=== PATIENT | male | born 1990 | race Caucasian/White ===

== ENCOUNTER 2022-11-19 07:04 | Inpatient (IN) | payer BC, SELFPAY ==
[2022-11-19] MEDS ORDERED: Dexamethasone 10 MG/ML VIAL ONE (07:53)
[2022-11-19] MEDS ORDERED: Ketorolac Tromethamine 30 MG/ML VIAL ONE (07:54)
[2022-11-19] MEDS ORDERED: Ondansetron PF 4 MG/2 ML Vial ONE (07:54)
[2022-11-19 08:28] LABS: #Basophils 0.1 10x3/uL (0.0-0.2); #Monocytes 0.9 10x3/uL (0.0-1.1); #Neutrophils 8.9 10x3/uL (1.5-8.4); %Basophils 1.3 % (0.0-2.0); %Eosinophils 0.4 % (0.0-6.0); %Lymphocytes 6.9 % (18.0-47.0); %Monocytes 8.5 % (0.0-10.0); %Neutrophils 81.3 % (40.0-75.0); Hemoglobin 14.5 g/dL (13.5-17.5); Mean Corpuscular HGB CONC 34.5 g/dL (32.0-36.0); Mean Corpuscular Hemoglobin 27.2 pg (27.0-33.0); Mean Corpuscular Volume 78.8 fl (81.2-95.1); Mean Platelet Volume 12.1 fl (7.4-10.4); Platelet Count 143 10x3/uL (150-450); RBC Distribution Width 13.3 % (11.5-14.5); Red Blood Cell (RBC) Count 5.33 10x6/uL (4.32-5.72); White Blood Cell (WBC) Count 10.9 10x3/uL (3.5-10.5)
[2022-11-19 08:41] LABS: ALT (SGPT) 18 U/L (8-55); AST (SGOT) 17 U/L (5-34); Albumin 4.2 g/dL (3.5-5.0); Alkaline Phosphatase 81 U/L (40-110); Anion Gap 23 mmol/L (10-20); BUN (Urea Nitrogen) 42 mg/dL (8.9-20.6); Bilirubin, Total 0.6 mg/dL (0.2-1.2); Calc. Creatinine Clearance 0 mL/min (70-130); Calcium 9.8 mg/dL (7.8-10.44); Carbon Dioxide 16 mmol/L (22-29); Chloride 97 mmol/L (98-107); Estimated GFR 30; Globulin 3.7 g/dL (2.4-3.5); Glucose 114 mg/dL (70-105); Lipase 21 U/L (8-78); Potassium 3.4 mmol/L (3.5-5.1); Protein, Total 7.9 g/dL (6.0-8.3); Sodium 133 mmol/L (136-145)
[2022-11-19 08:44] LABS: SARS-CoV-2 NAA Rapid Test Not Detected (NotDetected)
[2022-11-19 10:01] LABS: Bilirubin Neg (Negative); Blood, Urine 50 (Negative); Clarity Slightly Cloudy (Clear); Glucose, Urine (Dipstick) Normal (Negative); Ketone, Urine Negative (Negative); Leukocyte 25 (Negative); Nitrite Negative (Negative); Protein, Urine (Dipstick) 100 mg/dl (Neg-Trace); Urobilinogen Normal mg/dL (Less than 2)
[2022-11-19] MEDS ORDERED: Lidocaine Viscous Sol 2% 15 ml UD Cup ONE (10:14)
[2022-11-19] MEDS ORDERED: Mag-Al Plus 1200 MG/1200 MG/120 MG/30 ML UDCUP ONE (10:14)
[2022-11-19 11:20] LABS: RBC/HPF 0-3 HPF (0-3); Squamous Epithelial 0-3 HPF (0-3)
[2022-11-19 11:23] LABS: Bacteria/HPF Rare-Few HPF (None Seen)
[2022-11-19] MEDS ORDERED: Ondansetron PF 4 MG/2 ML Vial IVP PRN (13:09)
[2022-11-19] MEDS ORDERED: Ondansetron ODT 4 MG TAB PO PRN (13:09)
[2022-11-19 13:53] LABS: Amphetamine Detected (NotDetected); Barbiturates Screen Not Detected (NotDetected); Benzodiazepine Screen Detected (NotDetected); Cocaine Metabolite Screen Not Detected (NotDetected); Methadone Not Detected (NotDetected); Methamphetamine Not Detected (NotDetected); Opiate Screen Not Detected (NotDetected); Oxycodone Screen Not Detected (NotDetected); Phencyclidine (PCP) Not Detected (NotDetected); THC/Cannabinoid Screen Detected (NotDetected); Tricyclic Screen Not Detected (NotDetected)
[2022-11-19 14:07] LABS: Creatinine, Urine 80.26 mg/dL (63-166); Microalbumin/Creat Ratio 49.8 mg/g (Less than 30)
[2022-11-19] MEDS ORDERED: Potassium Chloride 20 MEQ TAB PO SCH (16:00)
[2022-11-19] MEDS: Lactated Ringer's 1,000 ML IV SCH (16:35)
[2022-11-19 18:01] VITALS: BMI 21.6
[2022-11-19] MEDS ORDERED: Famotidine/PF 20 mg/2ml Vial SLOW IVP SCH (21:00)
[2022-11-20] MEDS: Lactated Ringer's 1,000 ML IV SCH ×3 (00:33→15:14)
[2022-11-20 06:24] LABS: #Monocytes 0.9 10x3/uL (0.0-1.1); #Neutrophils 7.2 10x3/uL (1.5-8.4); %Basophils 0.3 % (0.0-2.0); %Monocytes 10.3 % (0.0-10.0); %Neutrophils 81.3 % (40.0-75.0); Hemoglobin 11.6 g/dL (13.5-17.5); Mean Corpuscular HGB CONC 33.6 g/dL (32.0-36.0); Mean Corpuscular Hemoglobin 27.8 pg (27.0-33.0); Mean Corpuscular Volume 82.7 fl (81.2-95.1); Mean Platelet Volume 12.3 fl (7.4-10.4); Platelet Count 132 10x3/uL (150-450); RBC Distribution Width 13.5 % (11.5-14.5); Red Blood Cell (RBC) Count 4.17 10x6/uL (4.32-5.72); White Blood Cell (WBC) Count 8.8 10x3/uL (3.5-10.5)
[2022-11-20 06:50] LABS: Anion Gap 16 mmol/L (10-20); BUN (Urea Nitrogen) 25 mg/dL (8.9-20.6); Calc. Creatinine Clearance 123 mL/min (70-130); Calcium 8.8 mg/dL (7.8-10.44); Carbon Dioxide 23 mmol/L (22-29); Chloride 103 mmol/L (98-107); Estimated GFR 110; Glucose 123 mg/dL (70-105); Magnesium 1.8 mg/dL (1.6-2.6); Phosphorus 2.8 mg/dL (2.3-4.7); Potassium 4.1 mmol/L (3.5-5.1); Sodium 138 mmol/L (136-145)
[2022-11-20] MEDS: Acetaminophen 325 MG TAB PO PRN ×3 (08:19→20:07)
[2022-11-20] MEDS: Famotidine/PF 20 mg/2ml Vial SLOW IVP SCH ×2 (08:21→20:09)
[2022-11-20] MEDS: ALPRAZolam 0.25 MG TAB PO PRN (15:12)
[2022-11-20 18:21] LABS: Hemoglobin 11.5 g/dL (13.5-17.5); Platelet Count 122 10x3/uL (150-450)
[2022-11-20] MEDS: DULoxetine 30 MG CAP PO SCH (20:07)
[2022-11-20] MEDS: Amoxicillin/Potassium Clav 875 MG TAB PO SCH (20:07)
[2022-11-20] MEDS: Chlorhexidine Gluconate 15 ML UDCUP SSP SCH (20:09)
[2022-11-20 21:04] LABS: Campy jejuni + coli by PCR Negative (Negative); STEC Shiga Toxin 1+2 Negative (Negative); Salmonella spp. by PCR Negative (Negative); Shigella spp + EIEC by PCR Negative (Negative)
[2022-11-20] MEDS: Morphine 2 MG/ML VIAL SLOW IVP PRN (21:20)
[2022-11-21] MEDS: Chloraseptic Spray 180 ml Bottle PO PRN ×7 (00:16→18:15)
[2022-11-21] MEDS: Lactated Ringer's 1,000 ML IV SCH (02:29)
[2022-11-21] MEDS: Morphine 2 MG/ML VIAL SLOW IVP PRN ×2 (02:34→06:07)
[2022-11-21 05:09] LABS: Anion Gap 10 mmol/L (10-20); BUN (Urea Nitrogen) 13 mg/dL (8.9-20.6); Calc. Creatinine Clearance 141 mL/min (70-130); Calcium 8.4 mg/dL (7.8-10.44); Carbon Dioxide 28 mmol/L (22-29); Chloride 99 mmol/L (98-107); Estimated GFR 121; Glucose 109 mg/dL (70-105); Potassium 3.4 mmol/L (3.5-5.1); Sodium 134 mmol/L (136-145)
[2022-11-21 05:10] LABS: Hemoglobin 11.5 g/dL (13.5-17.5); Platelet Count 124 10x3/uL (150-450)
[2022-11-21 05:11] LABS: Hemoglobin 11.6 g/dL (13.5-17.5); Mean Corpuscular HGB CONC 33.3 g/dL (32.0-36.0); Mean Corpuscular Hemoglobin 27.8 pg (27.0-33.0); Mean Corpuscular Volume 83.5 fl (81.2-95.1); Mean Platelet Volume 11.9 fl (7.4-10.4); Platelet Count 122 10x3/uL (150-450); RBC Distribution Width 13.9 % (11.5-14.5); Red Blood Cell (RBC) Count 4.17 10x6/uL (4.32-5.72); White Blood Cell (WBC) Count 6.8 10x3/uL (3.5-10.5)
[2022-11-21 05:54] LABS: #Monocytes 0.9 10x3/uL (0.0-1.1); #Neutrophils 4.3 10x3/uL (1.5-8.4); %Basophils 0.5 % (0.0-2.0); %Eosinophils 0.5 % (0.0-6.0); %Neutrophils 64.9 % (40.0-75.0)
[2022-11-21] MEDS ORDERED: Acetaminophen 325 MG TAB PO PRN (07:11)
[2022-11-21] MEDS ORDERED: Electrolyte Replacement Protocol 1 EACH FS SCH (07:15)
[2022-11-21 07:36] LABS: HIV (1/2) Antibody/Antigen Non-Reactive (NonReactive); HIV 1/2 INDEX 0.16 S/CO (<1.00)
[2022-11-21] MEDS ORDERED: Magnesium 2 GM/50 ML(in water) 2 GM in Premix Bag 1 BAG IVPB SCH (08:00)
[2022-11-21] MEDS ORDERED: Potassium Chloride 20 MEQ TAB PO SCH (08:00)
[2022-11-21] MEDS: Amoxicillin/Potassium Clav 875 MG TAB PO SCH (08:37)
[2022-11-21] MEDS: Famotidine/PF 20 mg/2ml Vial SLOW IVP SCH ×2 (08:37→20:47)
[2022-11-21] MEDS ORDERED: D5 1/2 NS w/20 mEq KCL 1,000 ML IV SCH (08:45)
[2022-11-21] MEDS: Chlorhexidine Gluconate 15 ML UDCUP SSP SCH ×2 (08:46→20:47)
[2022-11-21] MEDS ORDERED: Ampicillin/Sulbactam 3 GM in Sodium Chloride 0.9% 100 ML IVPB SCH (09:00)
[2022-11-21] MEDS ORDERED: Iopamidol 300 61% 100 ML VIAL FS ONE (09:52)
[2022-11-21] MEDS ORDERED: Piperacillin/Tazobactam 3.375 GM in Sodium Chloride 0.9% 100 ML IVPB SCH ×2 (10:45→11:00)
[2022-11-21] MEDS: Clindamycin/D5W 600 MG in Premix Bag 1 BAG IVPB SCH ×2 (14:52→22:03)
[2022-11-21 15:23] LABS: Potassium 4.1 mmol/L (3.5-5.1)
[2022-11-21] MEDS: Piperacillin/Tazobactam 3.375 GM in Sodium Chloride 0.9% 100 ML IVPB SCH (15:36)
[2022-11-21] MEDS: DULoxetine 30 MG CAP PO SCH (20:47)
[2022-11-21] MEDS: Morphine 4 MG/ML VIAL SLOW IVP PRN (20:47)
[2022-11-22] MEDS: Piperacillin/Tazobactam 3.375 GM in Sodium Chloride 0.9% 100 ML IVPB SCH ×3 (00:07→17:01)
[2022-11-22 04:25] LABS: Hemoglobin 12.2 g/dL (13.5-17.5); Mean Corpuscular HGB CONC 32.3 g/dL (32.0-36.0); Mean Corpuscular Hemoglobin 27.2 pg (27.0-33.0); Mean Corpuscular Volume 84.4 fl (81.2-95.1); Mean Platelet Volume 11.3 fl (7.4-10.4); Platelet Count 152 10x3/uL (150-450); RBC Distribution Width 13.9 % (11.5-14.5); Red Blood Cell (RBC) Count 4.48 10x6/uL (4.32-5.72); White Blood Cell (WBC) Count 7.7 10x3/uL (3.5-10.5)
[2022-11-22 04:37] LABS: Anion Gap 14 mmol/L (10-20); BUN (Urea Nitrogen) 10 mg/dL (8.9-20.6); Calc. Creatinine Clearance 134 mL/min (70-130); Calcium 8.7 mg/dL (7.8-10.44); Carbon Dioxide 27 mmol/L (22-29); Chloride 101 mmol/L (98-107); Estimated GFR 119; Glucose 94 mg/dL (70-105); Magnesium 1.8 mg/dL (1.6-2.6); Sodium 138 mmol/L (136-145)
[2022-11-22 05:09] LABS: MDiff Complete? YES
[2022-11-22 05:13] LABS: Band 6 % (5-11); Eosinophils 1 % (0-10); Lymphocytes 26 % (21-51); Monocytes 17 % (0-10); Neutrophil 50 % (42-75)
[2022-11-22 05:14] LABS: Platelet Morphology Comment Appears Adequate
[2022-11-22 05:15] LABS: RBC Morphology Normal
[2022-11-22] MEDS: Morphine 4 MG/ML VIAL SLOW IVP PRN ×2 (05:35→21:56)
[2022-11-22] MEDS: Clindamycin/D5W 600 MG in Premix Bag 1 BAG IVPB SCH ×3 (05:41→21:56)
[2022-11-22] MEDS ORDERED: Magnesium 2 GM/50 ML BAG (IN WATER) ONE (07:56)
[2022-11-22] MEDS ORDERED: Magnesium 2 GM/50 ML(in water) 2 GM in Premix Bag 1 BAG IVPB SCH (08:00)
[2022-11-22] MEDS ORDERED: Iopamidol 300 61% 100 ML VIAL FS ONE (08:49)
[2022-11-22] MEDS: Famotidine/PF 20 mg/2ml Vial SLOW IVP SCH ×2 (08:52→21:56)
[2022-11-22] MEDS: Chlorhexidine Gluconate 15 ML UDCUP SSP SCH ×2 (08:55→21:56)
[2022-11-22] MEDS: Chloraseptic Spray 180 ml Bottle PO PRN ×2 (08:59→14:05)
[2022-11-22] MEDS: DULoxetine 30 MG CAP PO SCH (21:56)
[2022-11-23] MEDS: Piperacillin/Tazobactam 3.375 GM in Sodium Chloride 0.9% 100 ML IVPB SCH ×3 (00:56→16:45)
[2022-11-23] MEDS: ALPRAZolam 0.25 MG TAB PO PRN (04:40)
[2022-11-23 05:05] LABS: #Basophils 0.1 10x3/uL (0.0-0.2); #Eosinphils 0.2 10x3/uL (0.0-0.5); #Neutrophils 4.9 10x3/uL (1.5-8.4); %Basophils 0.7 % (0.0-2.0); %Eosinophils 1.8 % (0.0-6.0); %Lymphocytes 26.7 % (18.0-47.0); %Monocytes 11.7 % (0.0-10.0); %Neutrophils 56.6 % (40.0-75.0); Hemoglobin 13.4 g/dL (13.5-17.5); Mean Corpuscular HGB CONC 32.2 g/dL (32.0-36.0); Mean Corpuscular Hemoglobin 27.1 pg (27.0-33.0); Mean Corpuscular Volume 84.2 fl (81.2-95.1); Mean Platelet Volume 10.9 fl (7.4-10.4); Platelet Count 221 10x3/uL (150-450); RBC Distribution Width 13.8 % (11.5-14.5); Red Blood Cell (RBC) Count 4.94 10x6/uL (4.32-5.72); White Blood Cell (WBC) Count 8.7 10x3/uL (3.5-10.5)
[2022-11-23 05:34] LABS: Anion Gap 16 mmol/L (10-20); BUN (Urea Nitrogen) 11 mg/dL (8.9-20.6); Calc. Creatinine Clearance 131 mL/min (70-130); Calcium 9.2 mg/dL (7.8-10.44); Carbon Dioxide 27 mmol/L (22-29); Chloride 99 mmol/L (98-107); Estimated GFR 118; Glucose 92 mg/dL (70-105); Magnesium 2.4 mg/dL (1.6-2.6); Potassium 4.2 mmol/L (3.5-5.1); Sodium 138 mmol/L (136-145)
[2022-11-23] MEDS: Clindamycin/D5W 600 MG in Premix Bag 1 BAG IVPB SCH ×3 (06:35→21:02)
[2022-11-23] MEDS: Famotidine/PF 20 mg/2ml Vial SLOW IVP SCH ×2 (08:52→21:01)
[2022-11-23] MEDS: Chlorhexidine Gluconate 15 ML UDCUP SSP SCH ×2 (08:53→21:01)
[2022-11-23] MEDS: Chloraseptic Spray 180 ml Bottle PO PRN (08:56)
[2022-11-23 20:38] LABS: HIV-1 Quantitative, RNA PCR <20 copies/mL (.)
[2022-11-23] MEDS: DULoxetine 30 MG CAP PO SCH (21:02)
[2022-11-23] MEDS: Morphine 4 MG/ML VIAL SLOW IVP PRN (22:02)
[2022-11-24] MEDS: Piperacillin/Tazobactam 3.375 GM in Sodium Chloride 0.9% 100 ML IVPB SCH ×3 (00:40→16:01)
[2022-11-24 04:41] LABS: #Basophils 0.1 10x3/uL (0.0-0.2); #Eosinphils 0.2 10x3/uL (0.0-0.5); #Monocytes 0.8 10x3/uL (0.0-1.1); #Neutrophils 3.5 10x3/uL (1.5-8.4); %Basophils 0.9 % (0.0-2.0); %Eosinophils 2.6 % (0.0-6.0); %Lymphocytes 36.9 % (18.0-47.0); %Monocytes 10.5 % (0.0-10.0); %Neutrophils 44.2 % (40.0-75.0); Hemoglobin 13.5 g/dL (13.5-17.5); Mean Corpuscular HGB CONC 33.5 g/dL (32.0-36.0); Mean Corpuscular Hemoglobin 27.8 pg (27.0-33.0); Mean Corpuscular Volume 82.9 fl (81.2-95.1); Mean Platelet Volume 10.3 fl (7.4-10.4); Platelet Count 264 10x3/uL (150-450); RBC Distribution Width 13.5 % (11.5-14.5); Red Blood Cell (RBC) Count 4.86 10x6/uL (4.32-5.72); White Blood Cell (WBC) Count 7.9 10x3/uL (3.5-10.5)
[2022-11-24 04:57] LABS: Anion Gap 15 mmol/L (10-20); BUN (Urea Nitrogen) 18 mg/dL (8.9-20.6); Calc. Creatinine Clearance 133 mL/min (70-130); Calcium 9.2 mg/dL (7.8-10.44); Carbon Dioxide 25 mmol/L (22-29); Chloride 102 mmol/L (98-107); Estimated GFR 119; Glucose 103 mg/dL (70-105); Potassium 3.9 mmol/L (3.5-5.1); Sodium 138 mmol/L (136-145)
[2022-11-24] MEDS: Morphine 4 MG/ML VIAL SLOW IVP PRN (05:17)
[2022-11-24] MEDS: Clindamycin/D5W 600 MG in Premix Bag 1 BAG IVPB SCH ×3 (05:17→22:02)
[2022-11-24] MEDS: Chlorhexidine Gluconate 15 ML UDCUP SSP SCH ×2 (08:32→22:01)
[2022-11-24] MEDS: Famotidine/PF 20 mg/2ml Vial SLOW IVP SCH ×2 (08:33→22:02)
[2022-11-24] MEDS ORDERED: Clindamycin/D5W 600 mg/50 ml Premix Bag ONE (14:21)
[2022-11-24] MEDS: Ketorolac Tromethamine 30 MG/ML VIAL IVP PRN (14:32)
[2022-11-24] MEDS: ALPRAZolam 0.25 MG TAB PO PRN (22:02)
[2022-11-24] MEDS: DULoxetine 30 MG CAP PO SCH (22:02)
[2022-11-25] MEDS: Piperacillin/Tazobactam 3.375 GM in Sodium Chloride 0.9% 100 ML IVPB SCH ×2 (00:52→09:05)
[2022-11-25] MEDS: Ketorolac Tromethamine 30 MG/ML VIAL IVP PRN (01:22)
[2022-11-25] MEDS: Clindamycin/D5W 600 MG in Premix Bag 1 BAG IVPB SCH (05:49)
[2022-11-25 06:26] LABS: Anion Gap 11 mmol/L (10-20); BUN (Urea Nitrogen) 20 mg/dL (8.9-20.6); Calc. Creatinine Clearance 121 mL/min (70-130); Calcium 8.9 mg/dL (7.8-10.44); Carbon Dioxide 27 mmol/L (22-29); Chloride 104 mmol/L (98-107); Estimated GFR 109; Glucose 90 mg/dL (70-105); Sodium 138 mmol/L (136-145)
[2022-11-25 06:28] LABS: #Basophils 0.1 10x3/uL (0.0-0.2); #Eosinphils 0.2 10x3/uL (0.0-0.5); #Monocytes 0.6 10x3/uL (0.0-1.1); #Neutrophils 4.1 10x3/uL (1.5-8.4); %Basophils 0.8 % (0.0-2.0); %Eosinophils 2.3 % (0.0-6.0); %Lymphocytes 36.7 % (18.0-47.0); %Monocytes 6.8 % (0.0-10.0); %Neutrophils 49.6 % (40.0-75.0); Hemoglobin 12.7 g/dL (13.5-17.5); Mean Corpuscular HGB CONC 32.8 g/dL (32.0-36.0); Mean Corpuscular Hemoglobin 27.5 pg (27.0-33.0); Mean Corpuscular Volume 83.8 fl (81.2-95.1); Mean Platelet Volume 10.4 fl (7.4-10.4); Platelet Count 299 10x3/uL (150-450); RBC Distribution Width 13.4 % (11.5-14.5); Red Blood Cell (RBC) Count 4.62 10x6/uL (4.32-5.72); White Blood Cell (WBC) Count 8.3 10x3/uL (3.5-10.5)
[2022-11-25 07:52] VITALS: BP 112/57; TEMP 97.6
[2022-11-25] MEDS ORDERED: Piperacillin/Tazobactam 3.375 GM VIAL ONE (09:03)
[2022-11-25] MEDS: Chlorhexidine Gluconate 15 ML UDCUP SSP SCH (09:05)
[2022-11-25] MEDS: Famotidine/PF 20 mg/2ml Vial SLOW IVP SCH (09:05)
[2022-11-25] MEDS: ALPRAZolam 0.25 MG TAB PO PRN (09:05)
== END 2022-11-25 12:55 | disposition home or self-care (01) | DRG 872 ==
LOC: CSHERS 07:04 → CSHTELE 11:48 → OBSVTOIN 11-21 08:40
PROVIDERS: ADMIT Family Medicine; ATTEND Internal Medicine
DX: A41.9 Sepsis, unspecified organism (principal); N17.9 Acute kidney failure, unspecified; E87.1 Hypo-osmolality and hyponatremia; E87.20 Acidosis, unspecified; J36 Peritonsillar abscess; R45.851 Suicidal ideations; Z20.822 Contact with and (suspected) exposure to COVID-19; E86.0 Dehydration; J45.909 Unspecified asthma, uncomplicated; F17.290 Nicotine dependence, other tobacco product, uncomplicated; E87.6 Hypokalemia; F15.10 Other stimulant abuse, uncomplicated; N18.1 Chronic kidney disease, stage 1; R91.1 Solitary pulmonary nodule; F12.10 Cannabis abuse, uncomplicated; F41.9 Anxiety disorder, unspecified; F32.A Depression, unspecified; Z88.2 Allergy status to sulfonamides; Z79.899 Other long term (current) drug therapy
CPT/HCPCS: 36415; 70491; 71045; 71260; 74176; 76770; 80048; 80053; 80306; 81003; 81015; 82043; 82570; 83605; 83690; 83735; 84100; 84156; 85025; 85652; 87040; 87077; 87081; 87389; 87430; 87505; 87536; 93005; 93010; 93306; 94760; 96361; 96374; 96375; 96376; G0378; J1100; J1885; J2270; J2272; J2405; J2543; J3475; J3480; J3490; J7120; Q9967; S0028

== ENCOUNTER 2023-06-11 07:31 | Outpatient (CLI) | payer BC | END 2023-06-11 07:32 | disposition home or self-care (01) | LOC: CSHMRI 07:31 | PROVIDERS: ATTEND Orthopaedic Surgery Hand Surgery | DX: M62.89 Other specified disorders of muscle (principal) ==